=== PATIENT | male | born 1990 | race Caucasian/White ===

== ENCOUNTER 2024-09-03 04:55 | Emergency (ER) | payer BC | END 2024-09-03 05:29 | disposition home or self-care (01) | LOC: JD.ED 04:55 | DX: K02.9 Dental caries, unspecified (principal); F17.210 Nicotine dependence, cigarettes, uncomplicated; Z91.048 Other nonmedicinal substance allergy status; Z79.899 Other long term (current) drug therapy | CPT/HCPCS: 99282 ==

== ENCOUNTER 2024-09-06 07:21 | Emergency (ER) | payer BC ==
[2024-09-06] MEDS: Ketorolac 30 MG/ML SDV IM ONE (07:49)
== END 2024-09-06 08:05 | disposition home or self-care (01) ==
LOC: JD.ED 07:21
DX: K02.9 Dental caries, unspecified (principal); F17.210 Nicotine dependence, cigarettes, uncomplicated; Z91.09 Other allergy status, other than to drugs and biological substances; Z79.899 Other long term (current) drug therapy
CPT/HCPCS: 96372; 99282; J1885